=== PATIENT | female | born 1950 | race Caucasian/White ===

== ENCOUNTER 2020-07-07 07:23 | Emergency (ER) | payer OTHER ==
--- NOTE | 2020-07-07 08:51 | RAD REPORT ---
EXAM DESCRIPTION: US - UPPER EXTREMITY VENOUS UNILATE - 07/07/2020 8:39 am CLINICAL HISTORY: Right upper extremity swelling COMPARISON: None. FINDINGS: The right internal jugular, subclavian, brachial, axillary, cephalic, basilic, radial and ulnar veins demonstrate phasic signal. The veins are generally compressible. Doppler demonstrates good flow IMPRESSION: No evidence of thrombus involving the right upper extremity
--- NOTE | 2020-07-07 08:52 | RAD REPORT ---
EXAM DESCRIPTION: US - Extremity Nonvascular Limited - 07/07/2020 8:39 am CLINICAL HISTORY: Right wrist pain COMPARISON: None FINDINGS: No cystic or solid mass visualized. IMPRESSION: No abnormality displayed
--- NOTE | 2020-07-07 09:16 | EDPHYS ---
Physician Documentation [facility] Name: Annmarie Perez Age: 69 yrs Sex: Female : 1950 Arrival Date: 07/07/2020 Time: 07:25 Bed 16 Private MD: ED Physician Ric Hugo HPI: 07/07 08:11 This 69 yrs old Female presents to ER via Ambulatory with complaints of Wrist rn Pain, Blood Clot. 08:11 The patient or guardian reports pain, swelling. The complaints affect the right wrist rn diffusely. Onset: The symptoms/episode began/occurred just prior to arrival. Modifying factors: The symptoms are alleviated by holding still, the symptoms are aggravated by movement. Associated signs and symptoms: Pertinent negatives: cyanosis distally, fever, numbness distally, tingling distally, vomiting. The patient has not experienced similar symptoms in the past. The patient has not recently seen a physician. Reports pain to right wrist, mild, then noticed swelling and bruising to inside right wrist, no direct trauma. Reports "doing a lot of work recently".Did not hear a pop. No hx of blood clots, no recent procedure on that wrist. . Historical: - Allergies: 07:42 No Known Allergies; iw - Home Meds: 07:42 amlodipine oral [Active]; Dexilant oral oral [Active]; iw - PMHx: 07:42 Hypertension; iw - PSHx: 07:42 Cholecystectomy; Tubal ligation; iw - Immunization history:: Adult Immunizations up to date. - Social history:: Smoking status: Patient/guardian denies using tobacco, the patient reports quitting approximately 20 years ago. - Family history:: not pertinent. - Hospitalizations: : No recent hospitalization is reported. ROS: 08:11 Constitutional: Negative for fever, chills, and weight loss, MS/Extremity: Negative for rn injury and deformity, Skin: + bruising to right wrist Exam: 08:11 Constitutional: This is a well developed, well nourished patient who is awake, alert, rn and in no acute distress. MS/ Extremity: Pulses equal, no cyanosis. Neurovascular intact. + ecchymosis and swelling volar right wrist, midline, no open wounds, no erythema or streaking. Vital Signs: 07:43 Resp 16; Temp 97.5; Weight 74.84 kg; Height 5 ft. 4 in. (162.56 cm); iw 07:43 Body Mass Index 28.32 (74.84 kg, 162.56 cm) iw MDM: 07:38 Patient medically screened. rn 09:13 Differential diagnosis: contusion, tendonitis, tendon rupture, superficial rn thrombophlebitis, blood clot, tendinitis. Data reviewed: vital signs, nurses notes, radiologic studies, doppler, plain films, and as a result, I will discharge patient. Counseling: I had a detailed discussion with the patient and/or guardian regarding: the historical points, exam findings, and any diagnostic results supporting the discharge/admit diagnosis, radiology results, the need for outpatient follow up, to return to the emergency department if symptoms worsen or persist or if there are any questions or concerns that arise at home. Special discussion: I discussed with the patient/guardian in detail that at this point there is no indication for admission to the hospital. It is understood, however, that if the symptoms persist or worsen the patient needs to return immediately for re-evaluation. ED course: No acute findings on xray or u/s. Will dc home with warm compress, splinting, and instructions to get outpt MRI if does not improve with RICE. . 07/07 07:45 Order name: XRAY Wrist RIGHT 3 view; Complete Time: 09:24 rn 07/07 07:45 Order name: US Extrmty Nonvasular Limited; Complete Time: 09:13 rn 07/07 08:09 Order name: UPPER EXTREMITY VENOUS UNILATE; Complete Time: 09:13 EDMS 07/07 09:15 Order name: Splint - Volar Wrist Splint; Complete Time: 09:19 rn Administered Medications: No medications were administered Disposition: 07/07/20 09:15 Discharged to Home. Impression: Pain in right wrist. - Condition is Stable. - Discharge Instructions: Wrist Pain. - Medication Reconciliation Form, Thank You Letter, Antibiotic Education, Prescription Opioid Use form. - Follow up: Private Physician; When: As needed; Reason: Recheck today's complaints, Re-evaluation by your physician. - Problem is new. - Symptoms have improved. Signatures: Dispatcher [employer] EDMS Deepali Aviles RN RN iw Nieto, Roman, MD MD rn Brown, Zipporah, RN RN zb Corrections: (The following items were deleted from the chart) 08:08 07:45 Extremity Venous Uni Ltd+[email or web address].RAD.BRZ ordered. EDMS EDMS 09:38 09:15 07/07/2020 09:15 Discharged to Home. Impression: Pain in right wrist. Condition zb is Stable. Forms are Medication Reconciliation Form, Thank You Letter, Antibiotic Education, Prescription Opioid Use. Follow up: Private Physician; When: As needed; Reason: Recheck today's complaints, Re-evaluation by your physician. Problem is new. Symptoms have improved. rn
--- NOTE | 2020-07-07 09:16 | ER ---
Nurse's Notes [facility] Name: Annmarie Perez Age: 69 yrs Sex: Female : 1950 Arrival Date: 07/07/2020 Time: 07:25 Bed 16 Private MD: Diagnosis: Pain in right wrist Presentation: 07/07 07:40 Chief complaint: Patient states: was putting on her makeup this morning and felt a iw stinging pain in her right wrist, had sudden swelling and bruising to inside of right wrist , denies trauma. Coronavirus screen: At this time, the client does not indicate any symptoms associated with coronavirus-19. Ebola Screen: Patient negative for fever greater than or equal to 101.5 degrees Fahrenheit, and additional compatible Ebola Virus Disease symptoms Patient denies exposure to infectious person. Patient denies travel to an Ebola-affected area in the 21 days before illness onset. No symptoms or risks identified at this time. Initial Sepsis Screen: Does the patient meet any 2 criteria? No. Patient's initial sepsis screen is negative. Does the patient have a suspected source of infection? No. Patient's initial sepsis screen is negative. Risk Assessment: Do you want to hurt yourself or someone else? Patient reports no desire to harm self or others. Onset of symptoms was July 07, 2020. 07:40 Method Of Arrival: Ambulatory iw 07:40 Acuity: ILIR 4 iw Historical: - Allergies: 07:42 No Known Allergies; iw - Home Meds: 07:42 amlodipine oral [Active]; Dexilant oral oral [Active]; iw - PMHx: 07:42 Hypertension; iw - PSHx: 07:42 Cholecystectomy; Tubal ligation; iw - Immunization history:: Adult Immunizations up to date. - Social history:: Smoking status: Patient/guardian denies using tobacco, the patient reports quitting approximately 20 years ago. - Family history:: not pertinent. - Hospitalizations: : No recent hospitalization is reported. Screenin:57 Abuse screen: Denies threats or abuse. Denies injuries from another. Nutritional zb screening: No deficits noted. Tuberculosis screening: No symptoms or risk factors identified. Fall Risk None identified. Assessment: 07:55 General: Appears in no apparent distress. comfortable, Behavior is calm, cooperative, zb appropriate for age. Pain: Denies pain. Neuro: Level of Consciousness is awake, alert, obeys commands, Oriented to person, place, time, situation. Cardiovascular: Capillary refill < 3 seconds in bilateral Patient's skin is warm and dry. Respiratory: Airway is patent Respiratory effort is even, unlabored, Respiratory pattern is regular, symmetrical. GI: Abdomen is flat, non-distended, Bowel sounds present X 4 quads. Abd is soft and non tender X 4 quads. : No signs and/or symptoms were reported regarding the genitourinary system. EENT: No signs and/or symptoms were reported regarding the EENT system. Derm: Skin is intact, is healthy with good turgor, Skin is dry, Skin is normal, Skin temperature is warm. Musculoskeletal: Circulation, motion, and sensation intact. Capillary refill < 3 seconds, Range of motion: intact in all extremities. Injury Description: Bruise sustained to right wrist quarter-size hematoma located back of wrist. 08:47 Reassessment: Patient appears in no apparent distress at this time. Patient and/or zb family updated on plan of care and expected duration. Pain level reassessed. Patient is alert, oriented x 3, equal unlabored respirations, skin warm/dry/pink. pt just came back from x-ray. Vital Signs: 07:43 Resp 16; Temp 97.5; Weight 74.84 kg; Height 5 ft. 4 in. (162.56 cm); iw 07:43 Body Mass Index 28.32 (74.84 kg, 162.56 cm) iw ED Course: 07:25 Patient arrived in ED. ag5 07:38 Ric Hugo MD is Attending Physician. rn 07:41 Triage completed. iw 07:43 Arm band placed on. iw 07:50 Cindy Charles, LINDSAY is Primary Nurse. zb 07:57 Patient has correct armband on for positive identification. Bed in low position. Call zb light in reach. Side rails up X 1. Adult w/ patient. Door closed. Noise minimized. Warm blanket given. 08:39 US Extrmty Nonvasular Limited In Process Unspecified. EDMS 08:39 UPPER EXTREMITY VENOUS UNILATE In Process Unspecified. EDMS 09:09 XRAY Wrist RIGHT 3 view In Process Unspecified. EDMS 09:36 No provider procedures requiring assistance completed. Patient did not have IV access zb during this emergency room visit. Administered Medications: No medications were administered Outcome: 09:15 Discharge ordered by . lindsay 09:36 Discharged to home ambulatory. zb 09:36 Condition: stable 09:36 Discharge instructions given to patient, Instructed on discharge instructions, follow up and referral plans. Demonstrated understanding of instructions, follow-up care. 09:38 Patient left the ED. zb Signatures: Dispatcher [employer] EDDeepali Strong RN RN iw Nieto, Roman, MD MD rn Gaskin, Ajare 5 Cindy Charles RN RN zb Corrections: (The following items were deleted from the chart) 07:58 07:55 Injury Description: Bruise sustained to right wrist zb zb
--- NOTE | 2020-07-07 09:20 | RAD REPORT ---
EXAM DESCRIPTION: RAD - Wrist Right 3 View - 07/07/2020 9:03 am CLINICAL HISTORY: Right wrist pain FINDINGS: No fracture or dislocation is seen. The bones appear osteoporotic Small bony density adjacent to the ulnar styloid process appears chronic
[2020-07-08 19:52] VITALS: TEMP 97.5
== END 2020-07-07 09:38 | disposition home or self-care (01) ==
LOC: ER 07:23
DX: M25.531 Pain in right wrist (principal); I10 Essential (primary) hypertension
CPT/HCPCS: 76882; 93971; 99282

== ENCOUNTER 2020-12-22 20:06 | Emergency (ER) | payer OTHER ==
[2020-12-22] MEDS ORDERED: ONDANSETRON 4 MG/2 ML VIAL ONE (22:02)
[2020-12-22] MEDS ORDERED: NA CHLORIDE 0.9% 1,000 ML ONE (22:02)
[2020-12-22] MEDS ORDERED: MIDAZOLAM HCL 2 MG/2 ML INJ ONE (22:02)
[2020-12-22] MEDS ORDERED: HYDROMORPHONE HCL 0.5 MG/0.5 ML INJ ONE (22:02)
[2020-12-22] MEDS ORDERED: ETOMIDATE 20 MG/10 ML VIAL IV ONE (22:02)
[2020-12-22 22:05] LABS: Absolute Lymphocytes (CBC) 1.5 K/uL (0.7-4.9); Basophils % 0.8 % (0-1.3); Hematocrit 40.2 % (36.0-45.0); Lymphocytes % 16.2 % (15.3-44.8); MPV 7.5 fL (7.6-11.3); RBC Red Blood Cell Count 4.73 M/uL (3.86-4.86)
[2020-12-22 22:16] LABS: BUN Blood Urea Nitrogen 11 mg/dL (7-18); Bicarbonate 25 mmol/L (21-32); Glucose Level 129 mg/dL (74-106); Potassium 3.3 mmol/L (3.5-5.1); Sodium Level 140 mmol/L (136-145)
--- NOTE | 2020-12-22 23:04 | ER ---
Nurse's Notes [facility] Name: Annmarie Perez Age: 70 yrs Sex: Female : 1950 Arrival Date: 12/22/2020 Time: 20:07 Bed 18 Private MD: Diagnosis: Colles' fracture of left radius-reduced;Displaced fracture of left ulna styloid process Presentation: 12/22 20:28 Chief complaint: Patient states: Slipped and fell 30 mins [employer], tried to catch self with ca1 L hand. Pain, swelling and obvious deformity on L wrist. Coronavirus screen: Client denies travel out of the [place] in the last 14 days. At this time, the client does not indicate any symptoms associated with coronavirus-19. Ebola Screen: Patient negative for fever greater than or equal to 101.5 degrees Fahrenheit, and additional compatible Ebola Virus Disease symptoms Patient denies exposure to infectious person. Patient denies travel to an Ebola-affected area in the 21 days before illness onset. No symptoms or risks identified at this time. Initial Sepsis Screen: Does the patient meet any 2 criteria? No. Patient's initial sepsis screen is negative. Does the patient have a suspected source of infection? No. Patient's initial sepsis screen is negative. Risk Assessment: Do you want to hurt yourself or someone else? Patient reports no desire to harm self or others. Onset of symptoms was December 22, 2020. 20:28 Method Of Arrival: Ambulatory ca1 20:28 Acuity: ILIR 3 ca1 Triage Assessment: 21:19 Injury Description: Deformity sustained to left wrist. ea Historical: - Allergies: 20:31 Morphine; ca1 - Home Meds: 20:31 amlodipine oral [Active]; Dexilant Oral [Active]; valsartan oral oral [Active]; ca1 atorvastatin oral oral [Active]; - PMHx: 20:31 Hypertension; COPD; High Cholesterol; ca1 - PSHx: 20:31 Cholecystectomy; Tubal ligation; ca1 - Immunization history:: Client reports receiving the 2nd dose of the Covid vaccine, Client reports receiving the 1st dose of the Covid vaccine, Pneumococcal vaccine is up to date, Flu vaccine is up to date. - Social history:: Smoking status: Patient denies any tobacco usage or history of. - Family history:: not pertinent. Screenin:16 Abuse screen: Denies threats or abuse. Nutritional screening: No deficits noted. ea Tuberculosis screening: No symptoms or risk factors identified. Fall Risk Fall in past 12 months (25 points). Assessment: 21:18 General: Appears uncomfortable, Behavior is appropriate for age. Pain: Complains of ea pain in left wrist. Neuro: Level of Consciousness is awake, alert, obeys commands, Oriented to person, place, time. Cardiovascular: Patient's skin is warm and dry. Respiratory: Airway is patent Respiratory effort is even, unlabored, Respiratory pattern is regular, symmetrical. Derm: Skin is pink, warm \T\ dry. Musculoskeletal: Swelling present in left wrist. 23:52 Reassessment: Patient and/or family updated on plan of care and expected duration. Pain ea level reassessed. Patient is alert, oriented x 3, equal unlabored respirations, skin warm/dry/pink. Patient states feeling better. Vital Signs: 20:28 BP 136 / 77; Pulse 75; Resp 18 S; Temp 97.5(TE); Pulse Ox 97% on R/A; Weight 76.2 kg ca1 (R); Height 5 ft. 4 in. (162.56 cm) (R); Pain 9/10; 23:51 BP 135 / 67; Pulse 76; Resp 18; Pulse Ox 98% ; ea 20:28 Body Mass Index 28.84 (76.20 kg, 162.56 cm) ca1 ED Course: 20:07 Patient arrived in ED. ag3 20:29 Triage completed. ca1 20:31 Arm band placed on right wrist. ca1 21:16 Laurel Fairbanks, RN is Primary Nurse. ea 21:17 Patient has correct armband on for positive identification. Bed in low position. Call ea light in reach. 21:31 Erich Mujica MD is Attending Physician. rajendra 21:43 Forearm Left XRAY In Process Unspecified. EDMS 21:55 Inserted saline lock: 20 gauge in right wrist, using aseptic technique. Blood collected.ad5 22:55 Wrist Left 2 View In Process Unspecified. EDMS 23:03 José Lozoya MD is Referral Physician. rajendra 23:50 No provider procedures requiring assistance completed. IV discontinued. ea Administered Medications: 21:57 Drug: NS 0.9% 1000 ml Route: IV; Rate: 1 bolus; Site: right wrist; ad5 21:58 Drug: Dilaudid (HYDROmorphone) 0.5 mg {Note: RASS 0.} Route: IVP; Site: right wrist; ad5 22:46 Follow up: Response: No adverse reaction ea 21:58 Drug: Zofran (Ondansetron) 4 mg Route: IVP; Site: right wrist; ad5 22:46 Follow up: Response: No adverse reaction ea 22:34 Drug: Versed (midazolam) 4 mg Route: IVP; Site: right antecubital; ea 23:52 Follow up: Response: No adverse reaction ea 22:36 Drug: Etomidate 10 mg Route: IVP; Site: right antecubital; ea 22:46 Follow up: Response: No adverse reaction ea 22:46 Not Given (Other Intervention Used): Etomidate 10 mg IVP once; hold for md ea 23:08 Drug: [place] (HYDROcodone-acetaminophen) 5 mg-325 mg 2 tabs Route: PO; ea 23:53 Follow up: Response: No adverse reaction ea Outcome: 23:03 Discharge ordered by . rajendra 23:50 Discharged to home ambulatory, with family. dimitri 23:50 Condition: stable 23:50 Discharge instructions given to patient, Instructed on discharge instructions, follow up and referral plans. medication usage, Demonstrated understanding of instructions, follow-up care, medications. 23:52 Patient left the ED. ea Signatures: Dispatcher [employer] Erich Cabrera MD MD cha Antunez, Elena, RN RN ea Gomez, Alice ag3 Eden Menchaca RN RN ca1 Davidson, Andrea ad5
--- NOTE | 2020-12-22 23:04 | EDPHYS ---
Physician Documentation [facility] Name: Annmarie Perez Age: 70 yrs Sex: Female : 1950 Arrival Date: 12/22/2020 Time: 20:07 Bed 18 Private MD: MARIA LUZ Physician Erich Mujica HPI: 12/22 21:37 This 70 yrs old Female presents to ER via Ambulatory with complaints of Wrist rajendra Injury, Fall Injury. 21:37 The patient or guardian reports decreased range of motion, pain. The complaints affect rajendra the left wrist diffusely. Context: The problem was sustained at home. Onset: The symptoms/episode began/occurred just prior to arrival. Modifying factors: The symptoms are alleviated by nothing, elevation, the symptoms are aggravated by movement, dependent position. Associated signs and symptoms: The patient has no apparent associated signs or symptoms. The patient has not experienced similar symptoms in the past. Historical: - Allergies: 20:31 Morphine; ca1 - Home Meds: 20:31 amlodipine oral [Active]; Dexilant Oral [Active]; valsartan oral oral [Active]; ca1 atorvastatin oral oral [Active]; - PMHx: 20:31 Hypertension; COPD; High Cholesterol; ca1 - PSHx: 20:31 Cholecystectomy; Tubal ligation; ca1 - Immunization history:: Client reports receiving the 2nd dose of the Covid vaccine, Client reports receiving the 1st dose of the Covid vaccine, Pneumococcal vaccine is up to date, Flu vaccine is up to date. - Social history:: Smoking status: Patient denies any tobacco usage or history of. - Family history:: not pertinent. ROS: 21:37 Constitutional: Negative for fever, chills, and weight loss, Eyes: Negative for injury, rajendra pain, redness, and discharge, ENT: Negative for injury, pain, and discharge, Neck: Negative for injury, pain, and swelling, Cardiovascular: Negative for chest pain, palpitations, and edema, Respiratory: Negative for shortness of breath, cough, wheezing, and pleuritic chest pain, Abdomen/GI: Negative for abdominal pain, nausea, vomiting, diarrhea, and constipation, Back: Negative for injury and pain, : Negative for injury, bleeding, discharge, and swelling, Skin: Negative for injury, rash, and discoloration, Neuro: Negative for headache, weakness, numbness, tingling, and seizure, Psych: Negative for depression, anxiety, suicide ideation, homicidal ideation, and hallucinations, Allergy/Immunology: Negative for hives, rash, and allergies, Endocrine: Negative for neck swelling, polydipsia, polyuria, polyphagia, and marked weight changes, Hematologic/Lymphatic: Negative for swollen nodes, abnormal bleeding, and unusual bruising. 21:37 MS/extremity: Positive for decreased range of motion, pain, swelling, tenderness, of the left wrist. Exam: 21:37 Hand exam: Exam is positive for ROM: limited active range of motion due to pain, rajendra limited passive range of motion due to pain, Circulation is intact in all extremities. sensation intact. Compartment Syndrome exam of affected extremity: is normal. 21:37 Constitutional: This is a well developed, well nourished patient who is awake, alert, and in no acute distress. Head/Face: Normocephalic, atraumatic. Eyes: Pupils equal round and reactive to light, extra-ocular motions intact. Lids and lashes normal. Conjunctiva and sclera are non-icteric and not injected. Cornea within normal limits. Periorbital areas with no swelling, redness, or edema. ENT: Nares patent. No nasal discharge, no septal abnormalities noted. Tympanic membranes are normal and external auditory canals are clear. Oropharynx with no redness, swelling, or masses, exudates, or evidence of obstruction, uvula midline. Mucous membranes moist. Neck: Trachea midline, no thyromegaly or masses palpated, and no cervical lymphadenopathy. Supple, full range of motion without nuchal rigidity, or vertebral point tenderness. No Meningismus. Chest/axilla: Normal chest wall appearance and motion. Nontender with no deformity. No lesions are appreciated. Cardiovascular: Regular rate and rhythm with a normal S1 and S2. No gallops, murmurs, or rubs. Normal PMI, no JVD. No pulse deficits. Respiratory: Lungs have equal breath sounds bilaterally, clear to auscultation and percussion. No rales, rhonchi or wheezes noted. No increased work of breathing, no retractions or nasal flaring. Abdomen/GI: Soft, non-tender, with normal bowel sounds. No distension or tympany. No guarding or rebound. No evidence of tenderness throughout. Back: No spinal tenderness. No costovertebral tenderness. Full range of motion. Female : Normal external genitalia. Skin: Warm, dry with normal turgor. Normal color with no rashes, no lesions, and no evidence of cellulitis. Neuro: Awake and alert, GCS 15, oriented to person, place, time, and situation. Cranial nerves II-XII grossly intact. Motor strength 5/5 in all extremities. Sensory grossly intact. Cerebellar exam normal. Normal gait. Psych: Awake, alert, with orientation to person, place and time. Behavior, mood, and affect are within normal limits. 21:37 Musculoskeletal/extremity: ROM: limited active range of motion due to pain, limited passive range of motion due to pain, Circulation is intact in all extremities. Sensation intact. Compartment Syndrome exam of affected extremity: is normal. Vital Signs: 20:28 BP 136 / 77; Pulse 75; Resp 18 S; Temp 97.5(TE); Pulse Ox 97% on R/A; Weight 76.2 kg ca1 (R); Height 5 ft. 4 in. (162.56 cm) (R); Pain 9/10; 23:51 BP 135 / 67; Pulse 76; Resp 18; Pulse Ox 98% ; ea 20:28 Body Mass Index 28.84 (76.20 kg, 162.56 cm) ca1 Procedures: 21:37 Reduction: of the left wrist, using traction, Immobilized with sling, Patient tolerated rajendra well. Moderate sedation: Pre-procedure assessment: the patient has been NPO 9 hour(s) prior to arrival, ASA physical classification: I - healthy, no underlying organic disease, Airway assessment: able to hyperextend neck, able to maintain airway, Monitoring during procedure: monitor tech, continuous pulse oximetry, Medications employed: Etomidate, Versed. MDM: 21:31 Patient medically screened. [facility] 12/22 21:36 Order name: CBC with Diff; Complete Time: 23:02 rajendra 12/22 21:36 Order name: Chem 7; Complete Time: 23:02 rajendra 12/22 20:33 Order name: Forearm Left XRAY ca1 12/22 22:38 Order name: Wrist Left 2 View EDNJ 12/22 21:36 Order name: Ice pack; Complete Time: 21:39 rajendra 12/22 21:42 Order name: Sling; Complete Time: 22:45 rajendra 12/22 21:42 Order name: Splint - Sugar Tong - Forearm; Complete Time: 22:45 rajendra 12/22 23:02 Order name: PO challenge: juice; Complete Time: 23:53 rajendra Administered Medications: 21:57 Drug: NS 0.9% 1000 ml Route: IV; Rate: 1 bolus; Site: right wrist; ad5 21:58 Drug: Dilaudid (HYDROmorphone) 0.5 mg {Note: RASS 0.} Route: IVP; Site: right wrist; ad5 22:46 Follow up: Response: No adverse reaction ea 21:58 Drug: Zofran (Ondansetron) 4 mg Route: IVP; Site: right wrist; ad5 22:46 Follow up: Response: No adverse reaction ea 22:34 Drug: Versed (midazolam) 4 mg Route: IVP; Site: right antecubital; ea 23:52 Follow up: Response: No adverse reaction ea 22:36 Drug: Etomidate 10 mg Route: IVP; Site: right antecubital; ea 22:46 Follow up: Response: No adverse reaction ea 22:46 Not Given (Other Intervention Used): Etomidate 10 mg IVP once; hold for md ea 23:08 Drug: [place] (HYDROcodone-acetaminophen) 5 mg-325 mg 2 tabs Route: PO; ea 23:53 Follow up: Response: No adverse reaction ea Disposition: 12/22/20 23:03 Discharged to Home. Impression: Colles' fracture of left radius - reduced, Displaced fracture of left ulna styloid process. - Condition is Stable. - Discharge Instructions: Wrist Fracture Treated With Immobilization, Wrist Splint, Wrist Splint, [id number], Wrist Fracture Treated With Immobilization, [id number]. - Prescriptions for Tylenol- Codeine #3 300-30 mg Oral Tablet - take 2 tablets by ORAL route every 4-6 hours As needed; 26 tablet. Motrin IB 200 mg Oral Tablet - take 2 tablet by ORAL route every 6 hours As needed as needed with food; 30 tablet. - Medication Reconciliation Form, Thank You Letter, Antibiotic Education, Prescription Opioid Use form. - Follow up: Private Physician; When: 2 - 3 days; Reason: Recheck today's complaints, Continuance of care, Re-evaluation by your physician. Follow up: Dr. José Lozoya; When: 2 - 3 days; Reason: Recheck today's complaints, Re-evaluation by your physician. - Problem is new. - Symptoms have improved. Signatures: Dispatcher [employer] EDMS Erich Mujica MD MD cha Antunez, Elena, RN RN ea Acob, Cheryl RN Refugio Gifford Corrections: (The following items were deleted from the chart) 22:38 22:28 Wrist Left 3 View+RAD.RAD.BRZ ordered. [facility] 23:52 23:03 12/22/2020 23:03 Discharged to Home. Impression: Colles' fracture of left radius ea - reduced; Displaced fracture of left ulna styloid process. Condition is Stable. Discharge Instructions: Wrist Fracture Treated With Immobilization, Wrist Splint, Wrist Splint, [id number], Wrist Fracture Treated With Immobilization, [id number]. Prescriptions for Tylenol-Codeine #3 300-30 mg Oral Tablet - take 2 tablets by ORAL route every 4-6 hours As needed; 26 tablet, Motrin IB 200 mg Oral Tablet - take 2 tablet by ORAL route every 6 hours As needed as needed with food; 30 tablet. and Forms are Medication Reconciliation Form, Thank You Letter, Antibiotic Education, Prescription Opioid Use. Follow up: Private Physician; When: 2 - 3 days; Reason: Recheck today's complaints, Continuance of care, Re-evaluation by your physician. Follow up: Dr. José Lozoya; When: 2 - 3 days; Reason: Recheck today's complaints, Re-evaluation by your physician. Problem is new. Symptoms have improved. rajendra
[2020-12-22] MEDS ORDERED: HYDROCODONE/APAP 5/325 MG TAB ONE (23:27)
[2020-12-22 23:57] VITALS: TEMP 97.5
[2020-12-22 23:58] VITALS: BP 135/67; O2SAT 98
--- NOTE | 2020-12-23 07:11 | RAD REPORT ---
EXAM DESCRIPTION: RAD - Forearm Left - 12/22/2020 9:43 pm CLINICAL HISTORY: PAIN, fall COMPARISON: None. FINDINGS: Ulna styloid is fractured. Comminuted fracture of the distal radius is present. Positioning is not optimal. The transverse fract ure is present. There is an additional free fracture fragment that includes the radial styloid and la teral aspect of the radial articular surface. Approximately 8 mm of displacement is seen between the fragments forming the articular surface of the radius. Remainder the radius and ulna are intact. No elbow joint abnormality. No acute carpal bone finding se en. No foreign body or other soft tissue abnormality. IMPRESSION: Comminuted distal left radius fracture as detailed.
--- NOTE | 2020-12-23 07:14 | RAD REPORT ---
EXAM DESCRIPTION: RAD - Wrist Left 2 View - 12/22/2020 10:55 pm CLINICAL HISTORY: post reduction;Deformity;Pain COMPARISON: Forearm Left dated 12/22/2020 FINDINGS: Cast material has been placed since prior imaging. The displaced large radial styloid frac ture fragment has been reduced to near anatomic alignment and position. Carpal bones maintain normal positioning to the articular surface of the radius. Carpal bone appears to be intact when wrist and f orearm collective images are reviewed. IMPRESSION: Postreduction imaging shows large radial styloid fracture fragment to be reduced to near anatomic alignment and position. Carpal bone alignment is good.
== END 2020-12-22 23:52 | disposition home or self-care (01) ==
LOC: ER 20:06
PROC: 0PSJXZZ Reposition Left Radius, External Approach (ICD-10-PCS; principal; 2020-12-22)
PROC: 0PSLXZZ Reposition Left Ulna, External Approach (ICD-10-PCS; 2020-12-22)
DX: S52.532A Colles' fracture of left radius, initial encounter for closed fracture (principal); S52.612A Displaced fracture of left ulna styloid process, initial encounter for closed fracture; I10 Essential (primary) hypertension; J44.9 Chronic obstructive pulmonary disease, unspecified; E78.00 Pure hypercholesterolemia, unspecified; W19.XXXA Unspecified fall, initial encounter; Y92.009 Unspecified place in unspecified non-institutional (private) residence as the place of occurrence of the external cause
CPT/HCPCS: 85025; 80048; 36415; 73090; 73100; 99284; 25605; J2250; J1170; J7030; J2405; 71046

== ENCOUNTER → 2020-12-31 | Day surgery (SDC) | payer OTHER ==
[2020-12-25 17:08] LABS: Protime INR 0.91
[~2020-12-31] MED LIST: ACETAMINOPHEN 500 MG TAB ONE; ALBUTEROL 2.5 MG/3 ML NEB SOL ONE; CEFAZOLIN/SWI 1gm 1 GM/10 ML SYR ONE; CELECOXIB 100 MG CAPSULE ONE; DIPHENHYDRAMINE 50 MG/ML VIAL ONE; FENTANYL CITR 100 MCG/2 ML ONE; HYDROCODONE/APAP 5/325 MG TAB ONE; KETOROLAC 30 MG/ML INJ ONE; LIDOCAINE 2% MPF 5 ML VIAL ONE; METOCLOPRAMIDE 10 MG/2mL INJ ONE; MIDAZOLAM HCL 2 MG/2 ML INJ ONE; NA CIT/CITRIC AC 30 ML ORAL UDC ONE; NS 0.9% VIAL 10 ML ONE; ONDANSETRON 4 MG/2 ML VIAL ONE; ROCURONIUM 50 MG/5 ML VIAL IV ONE; ROPLVACAINE HCL 20 ML ONE; Ringers Lactate 1,000 ML IV ONE; SUGAMMADEX SODIUM 200 MG/2 ML VIAL IV ONE; dexAMETHasone 10 MG/ML VIAL ONE; propofoL 200 MG/20 ML VIAL IV ONE
--- NOTE | 2020-12-31 11:23 | P.BOP ---
Preoperative diagnosis: left distal radius fracture Postoperative diagnosis: left 5 part intraarticular distal radius fracture Primary procedure: ORIF left 5 part intraarticular distal radius fracture Brim Blocker: NONE,NONE Estimated blood loss: 5 cc Specimen: none Findings: see dictation Anesthesia: General Complications: None Implants: Acumed Narrow Locking distal radius plate Fluids & blood products: per anesthesia record; TT: 59 mins @ 250 mmHg Transferred to: Recovery Room Condition: Good
--- NOTE | 2020-12-31 11:23 | RAD REPORT ---
EXAM DESCRIPTION: RAD - Wrist Left 2 View - 12/31/2020 11:17 am CLINICAL HISTORY: Radial fracture FINDINGS: Fluoroscopy time 0.2 minutes. Twenty-six fluoroscopic spot images obtained Sideplate and screws affix a radial fracture. Surgery performed by Dr. Lozoya
--- NOTE | 2020-12-31 11:51 | RAD REPORT ---
EXAM DESCRIPTION: RAD - Wrist Left 2 View - 12/31/2020 11:44 am CLINICAL HISTORY: Radial fracture FINDINGS: Sideplate and screws affix a distal radial fracture Avulsion fracture ulnar styloid process A cast immobilizes wrist
[2020-12-31 13:38] VITALS: BP 143/59
[2020-12-31 14:45] VITALS: TEMP 97; O2SAT 94
--- NOTE | 2020-12-31 21:18 | OP ---
Date of Procedure: 12/31/2020 Surgeon: José Lozoya MD Preoperative Diagnosis: Left wrist distal radius fracture. Postoperative Diagnosis: Left wrist 5 part distal radius fracture. Procedure Performed: Open reduction and internal fixation of left wrist 5 part distal radius fractur e. Anesthesia: General endotracheal. Fluids: Per Anesthesia record. Estimated Blood Loss: Less than 5 cc. Complications: None. Implants: A narrow 3 hole Acumed distal radius locking plate. Tourniquet Time: 59 minutes at 250 mmHg. Indication For Procedure: Maru is a 70-year-old female who presented to my clinic with signs, sym ptoms, and x-ray findings consistent with a displaced unstable distal radius fracture. I discussed w ith the patient at length risks and benefits associated with operative and nonoperative treatment. Deborah padillaen her significant instability and fracture, she expressed understanding and elected to proceed wit surgery. Description Of Procedure: After informed consent was obtained, the patient was identified in the pre operative holding area. The left upper extremity was marked. The patient was then brought back to [facility] operating room, transferred to the operating table in a supine fashion and placed under general en dotracheal anesthesia. Prior to be brought back to the operating room, she underwent a supraclavicul ar block performed by Anesthesia for postoperative pain control. The left upper extremity was then p repped and draped in usual sterile fashion. A time-out was initiated. The correct patient and proce dure were confirmed and identified. The patient did receive her preoperative prophylactic antibiotic s. The left upper extremity was exsanguinated and the tourniquet was inflated to 250 mmHg. Approxim ately, a 10 cm longitudinal incision was made over the FCR tendon in line with the volar [facility] ch. Dissection was taken on the FCR tendon. The tendon sheath was opened using tenotomies and relea sed in line with the incision. The FCR tendon was then gently retracted radially and the floor of th e tendon sheath was then opened using a Metzenbaum, then released in line with the incision. Blunt d issection was then taken down to the pronator quadratus, was identified and elevated off the distal r adius using a 15 blade and a wood handle elevator. The fracture was identified. It was reduced usin g traction and then under fluoroscopic guidance, a guidewire was placed in the tip of the radial styl oid and down in a retrograde fashion to hold the reduction in place. Once proper reduction was obtai saad, the 3 hole narrow Acumed distal radius locking plate was placed. The fracture was noted to have a sagittal and coronal split as well as fracture in the metaphysis making it a 5 part distal radius fracture. The reduction was held in position using a K-wire. A distal radial locking plate was then placed in place in proper position using fluoroscopy to confirm proper positioning and reduction. A single 3.5 mm proximal third cortical screw was placed in proximal aspect of the fracture to hold th e plate in place. Once in proper position as confirmed by fluoroscopy, a distal cortical screw was t hen placed to help reduce the fracture to the plate. This was followed by placement of 4 locking scr ews within the distal segment given the significant comminution within the radial styloid piece. Two remaining cortical screws were placed in the shaft in bicortical fashion with overall good fixation and bite. Final images were taken. There was a good overall alignment of the hardware as well as fr acture and maintenance of reduction. The wound was then irrigated thoroughly with normal saline. Th e subcutaneous tissue was approximated using a 2-0 Vicryl and skin was approximated using a 3-0 nylon . Sterile dressings were applied. A sugar-tong splint was applied. The tourniquet was let down. T he patient was awakened and transferred to PACU in stable condition. Postoperative Plan: She will be nonweightbearing of her left upper extremity. She will follow up in clinic in 2 weeks for wound check, suture removal, and placement of a forearm brace. CV/MODL Voice ID: [id number] Report ID: [id number]
== END ==
LOC: OR 07:23
PROVIDERS: ATTEND Orthopaedic Surgery Sports Medicine
PROC: 0PSJ04Z Reposition Left Radius with Internal Fixation Device, Open Approach (ICD-10-PCS; principal; 2020-12-31 11:45)
DX: S52.502A Unspecified fracture of the lower end of left radius, initial encounter for closed fracture (principal); I10 Essential (primary) hypertension; K21.9 Gastro-esophageal reflux disease without esophagitis; Z88.6 Allergy status to analgesic agent; Z20.822 Contact with and (suspected) exposure to COVID-19; X58.XXXA Exposure to other specified factors, initial encounter
CPT/HCPCS: 93005; 36415; 85610; 85730; 73100 ×2; 25609; U0002; J2704; J2765; J1200; J2250 ×2; J3010; J1100 ×2; J2795; J0690; J7120 ×2; J2405